=== PATIENT | male | born 1995 | race Caucasian/White ===

== ENCOUNTER 2016-08-30 06:58 | Emergency (ER) | payer BC ==
[2016-08-30 07:15] VITALS: TEMP 98.5
[2016-08-30] MEDS ORDERED: SODIUM CHLORIDE 0.9% 1000ML 1,000 ML IVS ONE (07:16)
[2016-08-30] MEDS ORDERED: PROMETHAZINE HCL INJ 25 MG in SODIUM CHLORIDE 0.9% 50ML 50 ML IVPB ONE (07:16)
[2016-08-30] MEDS ORDERED: SODIUM CHLORIDE 0.9% 50ML 50 ML ONE (07:28)
[2016-08-30] MEDS ORDERED: PROMETHAZINE HCL INJ 25 MG/ML VIAL ONE (07:28)
--- NOTE | 2016-08-30 08:36 | RAD ---
EXAM DESCRIPTION: XR ABDOMEN 2 VIEWS SUPINE ERECT CLINICAL HISTORY: n/v COMPARISON: None available FINDINGS: The cardiomediastinal silhouette is unremarkable. There is no airspace consolidation or pleural effusion. A right-sided DROP HAMMER SET UP OPERATOR shunt catheter is present but only partially visualized on this exam. There is no free subdiaphragmatic gas or intra-abdominal air fluid level period there are few nondilated gas-filled small bowel loops in the left mid abdomen, nonspecific period there is no evidence of obstruction or other acute intra-abdominal abnormality period no suspicious intra-abdominal calcification or mass, and no acute bone lesion period IMPRESSION: Several nondilated gas-filled small bowel loops in the left mid abdomen suggest the possibility of enteritis. No obstruction, pneumoperitoneum or other acute intra-abdominal abnormality. Electronically signed by: Eyal Yost DO 08/30/2016 08:34
[2016-08-30] MEDS ORDERED: carBAMazepine 200 MG TAB PO ONE (08:58)
[2016-08-30] MEDS ORDERED: levETIRAcetam INJ 1,000 MG in SODIUM CHLORIDE 0.9% 100ML 100 ML IVPB ONE (08:58)
[2016-08-30] MEDS ORDERED: ALUMINUM & MAGNESIUM HYDROXIDE 30 ML UD PO ONE (08:58)
[2016-08-30] MEDS ORDERED: levETIRAcetam INJ 100 MG/ML VIAL IVPB ONE ×2 (09:34→09:38)
[2016-08-30] MEDS ORDERED: SODIUM CHLORIDE 0.9% 100ML 100 ML IVPB ONE ×2 (09:35→09:38)
--- NOTE | 2016-08-30 10:23 | ED.PDOC ---
History of Present Illness - General Chief Complaint: Abdominal Pain Stated Complaint: abdominal pain Time Seen by Provider: 08/30/16 07:16 Source: patient, family Exam Limitations: no limitations - History of Present Illness Initial Comments: the patient is a 21-year-old male presenting to the emergency room with his parents secondary to nausea and vomiting for the last 24 hours. He started having vomiting and abdominal cramping starting at approximately 1 PM yesterday. He arrived here approximately 7 AM this morning. He has thrown up better than 10 times. He does think that he kept down his epilepsy medications last night. he has not had a seizure. He is having abdominal cramping and some muscular cramping as well as a mild headache. He did have a BANANA CARRIER shunt placed with revisions in the past. No new focal neurological changes. He does feel dry. He does feel weak when he goes to stand up. No syncope or near- syncope. No definite fevers. No rash. No vision changes. No balance issues that are new. headache started this morning well after the start of the vomiting yesterday. Timing/Duration: 24 hours Severity: moderate Improving Factors: nothing Worsening Factors: nothing Associated Symptoms: loss of appetite, malaise, nausea/vomiting Allergies/Adverse Reactions: Allergies NO KNOWN ALLERGY Allergy (Verified 08/30/16 07:14) Home Medications: Ambulatory Orders Carbamazepine 400 mg PO BID 08/30/16 Guanfacine HCl (Adhd) [Guanfacine ER] 2 mg PO DAILY 08/30/16 Levetiracetam 2,000 mg PO BID 08/30/16 Ondansetron [Zofran Odt] 4 mg PO Q4H PRN #10 tab 08/30/16 Promethazine HCl 25 mg PO Q6H PRN #10 tab 08/30/16 Review of Systems - Review of Systems Constitutional: States: malaise, weakness EENTM: States: no symptoms reported Respiratory: States: no symptoms reported Cardiology: States: no symptoms reported Gastrointestinal/Abdominal: States: abdominal pain, nausea, vomiting Genitourinary: States: no symptoms reported Musculoskeletal: States: muscle stiffness Skin: States: no symptoms reported Neurological: States: headache - mild and circumferential Endocrine: States: no symptoms reported All other Systems: No Change from Baseline Past Medical History (General) - Patient Medical History Hx Seizures: Yes Surgical History: other - Vaccination History Hx Tetanus, Diphtheria Vaccination: No Hx Influenza Vaccination: Yes Hx Pneumococcal Vaccination: No - Social History Hx Tobacco Use: No Hx Alcohol Use: No Hx Substance Use: No Hx Substance Use Treatment: No Hx Depression: No - Activities of Daily Living Hospice Agency (if applicable):: None - Female History Patient is a Female of Child Bearing Age (10 -59 yrs old): No Patient : No Family Medical History - Family History Mother Family History: Unknown Physical Exam - Physical Exam General Appearance: Alert, No apparent distress Eye Exam: bilateral normal Ears, Nose, Throat: hearing grossly normal, normal ENT inspection Neck: non-tender, full range of motion, supple - no nuchal rigidity or meningeal signs. Respiratory: chest non-tender, lungs clear, normal breath sounds, no respiratory distress, no accessory muscle use Cardiovascular/Chest: normal peripheral pulses, regular rate, rhythm, no edema Peripheral Pulses: radial,right: 2+, radial,left: 2+, dorsalis pedis,right: 2+, dorsalis pedis,left: 2+ Gastrointestinal/Abdominal: other - the patient has mild diffuse discomfort palpation. No rebound or peritoneal signs. Most of the discomfort is periumbilical. No right lower quadrant more significant right upper quadrant pain. Rectal Exam: deferred Back Exam: normal inspection, no CVA tenderness Extremity: normal range of motion, non-tender, normal inspection, no pedal edema Neurologic: alert, normal mood/affect, oriented x 3 Skin Exam: normal color Comments: Vital Signs - 24 hr 08/30/16 08/30/16 07:02 07:59 Temperature 98.5 F Pulse Rate [ 69 56 L pulse ox] Respiratory 20 20 Rate Blood Pressure 127/73 101/61 [Left Arm] O2 Sat by Pulse 99 97 Oximetry Progress - Progress Progress: 08/30/16 10:27 08/30/16 10:28 the patient is a 21-year-old male presenting with what appears to be gastroenteritis most likely of viral origin. He'll be written for Zofran and Phenergan for when necessary use. I prefer that he use the Phenergan first to control the vomiting and if that fails then add on Zofran. he needs to keep well-hydrated. He did have mild to moderate dehydration here today. Lab work does look reassuring. Abdominal series x-rays look reassuring as well. Vital signs are reassuring. He needs to follow-up with his primary care doctor before the weekend. ER warnings were given for any worsening. I also recommend that he take Pepcid once daily preferably in the middle of the day for the next week to help reduce stomach irritation. He can additionally take Maalox or Tums as needed for the next week to help reduce gastritis symptoms. - Results/Orders Results/Orders: Laboratory Last Values WBC 4.2 K/mm3 (4.8-10.8) L 08/30/16 07:25 RBC 4.79 M/mm3 (4.70-6.10) 08/30/16 07:25 Hgb 14.8 gm/dL (14.0-18.0) 08/30/16 07:25 Hct 43.5 % (42.0-52.0) 08/30/16 07:25 MCV 90.8 fl (80.0-94.0) 08/30/16 07:25 MCH 31.0 pg (27.0-31.0) 08/30/16 07:25 MCHC 34.1 g/dL (33.0-37.0) 08/30/16 07:25 RDW 12.6 % (11.5-14.5) 08/30/16 07:25 Plt Count 203 K/mm3 (130-400) 08/30/16 07:25 MPV 6.1 fl (7.40-10.4) L 08/30/16 07:25 Absolute Neuts (auto) 2.90 K/uL (1.8-6.8) 08/30/16 07:25 Absolute Lymphs (auto) 0.80 K/uL (1.0-3.4) L 08/30/16 07:25 Absolute Monos (auto) 0.50 K/uL (0.2-0.8) 08/30/16 07:25 Absolute Eos (auto) 0.00 K/uL (0.0-0.4) 08/30/16 07:25 Absolute Basos (auto) 0.00 K/uL (0.0-0.1) 08/30/16 07:25 Neutrophils % 68.2 % (42.0-78.0) 08/30/16 07:25 Lymphocytes % 19.0 % (20.0-50.0) L 08/30/16 07:25 Monocytes % 12.4 % (2.0-9.0) H 08/30/16 07:25 Eosinophils % 0.1 % (1.0-5.0) L 08/30/16 07:25 Basophils % 0.3 % (0.0-2.0) 08/30/16 07:25 PT 11.9 SECONDS (9.4-12.5) 08/30/16 07:25 INR 1.060 08/30/16 07:25 PTT (SP) 33.2 SECONDS (25.1-36.5) 08/30/16 07:25 Sodium 136 mmol/L (135-145) 08/30/16 07:25 Potassium 3.8 mmol/L (3.6-5.0) 08/30/16 07:25 Chloride 102 mmol/L (101-111) 08/30/16 07:25 Carbon Dioxide 28 mmol/L (21-31) 08/30/16 07:25 Anion Gap 9.8 (12-18) L 08/30/16 07:25 BUN 11 mg/dL (7-18) 08/30/16 07:25 Creatinine 0.75 mg/dL (0.6-1.3) 08/30/16 07:25 BUN/Creatinine Ratio 14.7 (10-20) 08/30/16 07:25 Random Glucose 109 mg/dL (70-105) H 08/30/16 07:25 Serum Osmolality 271.9 mOsm/L (275-295) L 08/30/16 07:25 Calcium 8.7 mg/dL (8.4-10.2) 08/30/16 07:25 Magnesium 1.9 mg/dL (1.8-2.5) 08/30/16 07:25 Total Bilirubin 0.6 mg/dL (0.2-1.0) 08/30/16 07:25 AST 24 IU/L (10-42) 08/30/16 07:25 ALT 51 IU/L (10-60) 08/30/16 07:25 Alkaline Phosphatase 55 IU/L (42-121) 08/30/16 07:25 Serum Total Protein 7.0 gm/dL (6.4-8.2) 08/30/16 07:25 Albumin 4.0 g/dl (3.2-5.5) 08/30/16 07:25 Globulin 3.0 gm/dL (2.3-3.5) 08/30/16 07:25 Albumin/Globulin Ratio 1.3 (1.1-1.9) 08/30/16 07:25 Amylase 43 U/L (28-100) 08/30/16 07:25 Lipase 20 U/L (22-51) L 08/30/16 07:25 TSH 0.69 uIU/mL (0.34-5.60) 08/30/16 07:25 Urine Color Yellow (Yellow) 08/30/16 08:18 Urine Appearance Clear (Clear) 08/30/16 08:18 Urine pH 7.0 (4.5-7.8) 08/30/16 08:18 Ur Specific [place] 1.020 (1.005-1.030) 08/30/16 08:18 Urine Protein 30 mg/dL 08/30/16 08:18 Urine Glucose (UA) 100 mg/dL (Negative) H 08/30/16 08:18 Urine Ketones Trace mg/dL (NEGATIVE) 08/30/16 08:18 Urine Blood Negative (Negative) 08/30/16 08:18 Urine Nitrite Negative 08/30/16 08:18 Urine Bilirubin Small (NEGATIVE) H 08/30/16 08:18 Urine Urobilinogen 1.0 mg/dL (0.2-1.0) 08/30/16 08:18 Ur Leukocyte Esterase Negative (Negative) 08/30/16 08:18 Urine RBC 0 /hpf 08/30/16 08:18 Urine WBC 0 /hpf 08/30/16 08:18 Ur Epithelial Cells 1-3 /hpf 08/30/16 08:18 Urine Bacteria 0 08/30/16 08:18 Urine Mucus Trace 08/30/16 08:18 abdominal series shows no acute definitive pathology. Departure - Departure Clinical Impression: Gastroenteritis, Dehydration, mild Disposition: Discharge to Home or Self Care Condition: Fair Departure Forms: ED Discharge - Pt. Copy, Patient Portal Self Enrollment Instructions: DI for Viral Gastroenteritis -- Adult, DI for Dehydration -- Adult Diet: bland diet Activity: increase activity as tolerated Referrals: Pawan James MD [Primary Care Provider] - 1-2 Days Prescriptions: Promethazine HCl 25 mg PO Q6H PRN #10 tab PRN Reason: Vomiting Ondansetron [Zofran Odt] 4 mg PO Q4H PRN #10 tab PRN Reason: Vomiting Home Medications: Ambulatory Orders Carbamazepine 400 mg PO BID 08/30/16 Guanfacine HCl (Adhd) [Guanfacine ER] 2 mg PO DAILY 08/30/16 Levetiracetam 2,000 mg PO BID 08/30/16 Ondansetron [Zofran Odt] 4 mg PO Q4H PRN #10 tab 08/30/16 Promethazine HCl 25 mg PO Q6H PRN #10 tab 08/30/16 Additional Instructions: the patient is a 21-year-old male presenting with what appears to be gastroenteritis most likely of viral origin. He'll be written for Zofran and Phenergan for when necessary use. I prefer that he use the Phenergan first to control the vomiting and if that fails then add on Zofran. he needs to keep well-hydrated. He did have mild to moderate dehydration here today. Lab work does look reassuring. Abdominal series x-rays look reassuring as well. Vital signs are reassuring. He needs to follow-up with his primary care doctor before the weekend. ER warnings were given for any worsening. I also recommend that he take Pepcid once daily preferably in the middle of the day for the next week to help reduce stomach irritation. He can additionally take Maalox or Tums as needed for the next week to help reduce gastritis symptoms. He was given his morning doses of his medications for treatment of his epilepsy here in the emergency room. His home medications can be resumed this evening.
[2016-08-30 11:19] VITALS: BP 106/60; O2SAT 99
== END 2016-08-30 11:15 | disposition home or self-care (01) ==
LOC: ER 06:58
DX: K52.9 Noninfective gastroenteritis and colitis, unspecified (principal); E86.0 Dehydration; G40.909 Epilepsy, unspecified, not intractable, without status epilepticus; Z79.899 Other long term (current) drug therapy
CPT/HCPCS: 36415; 74020; 80053; 81001; 82150; 83690; 83735; 84443; 85025; 85610; 85730; A4216; J2060; J2550; J7030

== ENCOUNTER → 2016-09-01 | Outpatient (CLI) | payer BC | LOC: GMAB 14:15 | PROVIDERS: ATTEND Family Medicine | DX: A08.4 Viral intestinal infection, unspecified (principal); R11.2 Nausea with vomiting, unspecified ==

== ENCOUNTER → 2016-09-01 | Outpatient (CLI) | payer BC ==
--- NOTE | 2016-09-01 12:23 | CT ---
EXAM DESCRIPTION: CT ABDOMEN PELVIS WITHOUT THEN WITH IV CONTRAST CLINICAL HISTORY: RLQ PAIN COMPARISON: None Available TECHNIQUE: CT of the abdomen and Pelvis was performed with and without IV contrast. FINDINGS: The appendix is normal period there is no calcified gallstone or renal calculus period medical tubing in the anterior abdominal wall extending into the lower abdomen pelvis suggest a RESOURCE EFFICIENCY MANAGER shunt catheter period the lung bases are unremarkable period there is no pneumoperitoneum, ascites or adenopathy period no hiatal hernia period the liver, spleen, pancreas, adrenals and kidneys are unremarkable period there is no bladder wall thickening period no dilated small bowel loops period there is no colonic wall thickening or pericolonic inflammation period no inguinal hernia period no suspicious bone lesion period IMPRESSION: No evidence of appendicitis or other acute abnormality in the abdomen or pelvis to explain right lower quadrant pain.. Electronically signed by: Eyal Yost DO 09/01/2016 12:21
--- NOTE | 2016-09-01 13:54 | US ---
EXAM DESCRIPTION: Gallbladder ultrasound. CLINICAL HISTORY: Abdominal pain. COMPARISON: None. TECHNIQUE: Transabdominal sonography was performed by an veterinary surgery technologist. FINDINGS: Liver: Echogenicity is unremarkable.suggests fatty infiltration and/or chronic hepatocellular disease. No suspicious lesion or surface nodularity. Biliary: No gallstones, gallbladder wall thickening, or sonographic Cassidy's sign. There is no biliary duct dilation. Mid common bile duct measures 5 mm in diameter. Pancreas: No focal lesion. However, certain portions are obscured by overlying bowel gas and unable to be evaluated. IMPRESSION There is increased echogenicity to the liver compatible with fatty infiltration. The remaining study is unremarkable with no evidence of cholelithiasis or cholecystitis. Electronically signed by: Germán Jin MD 09/01/2016 13:52
== END ==
LOC: RAD 11:30
PROVIDERS: ATTEND Family Medicine
DX: R10.31 Right lower quadrant pain (principal)

== ENCOUNTER → 2016-09-04 | Outpatient (CLI) | payer BC | LOC: GMAB 14:17 | PROVIDERS: ATTEND Family Medicine | DX: R94.5 Abnormal results of liver function studies (principal) ==

== ENCOUNTER → 2016-09-07 | Outpatient (CLI) | payer BC ==
--- NOTE | 2016-09-07 13:39 | NM ---
EXAM DESCRIPTION: NM HEPATOBILIARY WITH PHARM CLINICAL HISTORY: 21 y/o M, ABDOMINAL PAIN COMPARISON: None. FINDINGS: Radiopharmaceutical: 7.0 mCi technetium 99 M IV; 1.7 mcg. CCK, slow IV push Distribution of the radiopharmaceutical is homogeneous. The gallbladder becomes apparent definitively by 11 min with small bowel activity noted by 20 min. Clearance of pharmaceutical is noted in the expected timeframe. Pharmacologic gallbladder stimulation was given. The following images document a normal ejection fraction of 54% without associated discomfort. The study however suggests bile salt reflux with activity in the left upper quadrant noted. IMPRESSION: 1. Normal HIDA scan. 2. Bile salt reflux. Electronically signed by: Mackenzie Cortez 09/07/2016 13:37
== END ==
LOC: NM 09:02
PROVIDERS: ATTEND Family Medicine
DX: R10.84 Generalized abdominal pain (principal)
CPT/HCPCS: 78227; A9537

== ENCOUNTER → 2016-09-11 | Outpatient (CLI) | payer BC ==
--- NOTE | 2016-09-11 10:18 | RAD ---
EXAM DESCRIPTION: Abdomen radiography. CLINICAL HISTORY: Abdominal pain. COMPARISON: August 30, 2016 TECHNIQUE: Two views. FINDINGS: Bowel gas pattern is non-obstructed. There is no obvious free intraperitoneal air. Visualized segments of the abdominal organs are unremarkable. No suspicious bone lesion or fracture is seen. IMPRESSION: No significant abnormality. Electronically signed by: Germán Jin MD 09/11/2016 10:17
== END ==
LOC: RAD 09:34
PROVIDERS: ATTEND Surgery
DX: R10.11 Right upper quadrant pain (principal)

== ENCOUNTER → 2017-03-12 | Outpatient (CLI) | payer BC ==
--- NOTE | 2017-03-13 10:00 | CT ---
EXAM DESCRIPTION: Abdomen/Pelvis w/Contrast CLINICAL HISTORY: 21 years Male, R10.11 COMPARISON: 01 September 2016 TECHNIQUE: Transaxial images were obtained without intravenous or oral contrast media. Sagittal and coronal reconstruction was performed.This exam was performed according to our departmental dose-optimization program, which includes automated exposure control, adjustment of the mA and/or kV according to patient size and/or use of iterative reconstruction technique. FINDINGS: The lung bases are clear. BINDER STRIPPER HAND shunt tubing is seen traversing the anterior chest and is coiled in the abdomen. The liver and spleen are unremarkable. No biliary ductal dilatation is observed. The gallbladder is normal in appearance. No adrenal masses are detected. The pancreas is normal. Imaging of the kidneys reveals no evidence of hydronephrosis mass cyst or calcification. The appendix is identified and is normal in appearance. Small amount of free fluid is observed in the pelvis. No inguinal region abnormality is seen. No bone abnormality is seen. IMPRESSION: 1. BINDER STRIPPER HAND shunt tubing is seen coiled in the abdomen. 2. A small amount of free fluid is observed in the pelvis. Electronically signed by: Krish Berumen MD 03/13/2017 9:59 AM CDT
== END ==
LOC: CT 09:47
PROVIDERS: ATTEND Internal Medicine Gastroenterology
DX: R10.11 Right upper quadrant pain (principal); R10.13 Epigastric pain

== ENCOUNTER 2017-08-18 15:51 | Emergency (ER) | payer BC ==
[2017-08-18 16:05] VITALS: TEMP 99
[2017-08-18] MEDS ORDERED: SODIUM CHLORIDE 0.9% 1000ML 1,000 ML IVS ONE (16:12)
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
[2017-08-18] MEDS ORDERED: KETOROLAC TROMETHAMINE INJ 30 MG/ML VIAL IV ONE (16:49)
[2017-08-18] MEDS: fentaNYL CITRATE INJ 50 MCG/ML AMP IV PRN ×2 (16:53→17:42)
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
[2017-08-18] MEDS ORDERED: ACETAMINOPHEN W/COD #3 TAB (ER Disp) PO PRN (18:47)
[2017-08-18 18:57] VITALS: BP 130/74; O2SAT 97
== END 2017-08-18 18:57 | disposition home or self-care (01) ==
LOC: ER 15:51
DX: M54.2 Cervicalgia (principal); R51 Headache; Z98.2 Presence of cerebrospinal fluid drainage device; V49.9XXA Car occupant (driver) (passenger) injured in unspecified traffic accident, initial encounter; Y92.410 Unspecified street and highway as the place of occurrence of the external cause
CPT/HCPCS: 36415; 70450; 71260; 72125; 80053; 80320; 85025; J1885; J3010; J7030

== ENCOUNTER 2017-08-21 16:45 | Emergency (ER) | payer BC ==
[2017-08-21 17:18] VITALS: TEMP 96.8
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
[2017-08-21] MEDS ORDERED: PROMETHAZINE HCL INJ 25 MG/ML VIAL IM ONE (20:14)
[2017-08-21] MEDS ORDERED: BUTORPHANOL TARTRATE 2 MG/ML VIAL IM ONE (20:14)
[2017-08-21 20:45] VITALS: BP 126/63; O2SAT 98
--- NOTE | 2017-08-21 20:59 | CT ---
PROCEDURE: Head HISTORY: headache/shunt NON CONTRAST Indication: Same as above Comparison: CT of the head done on 08/18/2017 Technique: CT of the head was done without intravenous contrast was done in the orthogonal planes. This exam was performed according to our departmental dose-optimization program, which includes automated exposure control, adjustment of the mA and/or KV according to the patient's size and/or use of iterative reconstruction technique. FINDINGS: There is no intracranial hemorrhage, midline shift mass effect or acute focal infarct. Note is again made of right-sided craniotomy defects and presence of a right-sided ENTRY REP shunt terminating in the medial right lateral ventricle. There is no hydrocephalus. Stable right frontal atrophy is noted If clinical concern exists regarding an acute ischemic/vascular pathology being responsible for patient's symptomatology, an MRI of the brain is more sensitive than the current study, in ruling out such a possibility. There is good velarde/white matter differentiation. The mastoid air cells are unremarkable . The paranasal sinuses show changes of mild chronic sinusitis . There is no visualization of acute fractures involving the calvarium or the skull base. IMPRESSION: There is no acute intracranial abnormality. Stable position of the right-sided ENTRY REP shunt. There is no hydrocephalus Electronically signed by: Jose Alberto Frank MD 08/21/2017 7:54 PM UPHOLSTERY SEWER Workstation: [id number]
== END 2017-08-21 20:44 | disposition home or self-care (01) ==
LOC: ER 16:45
DX: G44.309 Post-traumatic headache, unspecified, not intractable (principal); Z98.2 Presence of cerebrospinal fluid drainage device; Z86.61 Personal history of infections of the central nervous system
CPT/HCPCS: 70450; J0595; J2550

== ENCOUNTER → 2020-01-19 | Outpatient (CLI) | payer BC ==
--- NOTE | 2020-01-20 12:10 | US ---
EXAM DESCRIPTION: Soft Tissue,Abdomen: ULTRASOUND. CLINICAL HISTORY: LOC SWELLING, MASS AND LUMP, UNSP. Unspecified. Patient states he has felt this mass for 6 months. He "popped a pimple" in this region 6 months ago. COMPARISON: CT scan of chest and CT scan of cervical spine July 2017. CT scan of August 2017. TECHNIQUE: Transabdominal scanning: velarde-scale mode. Doppler mode. FINDINGS: Scanning of the left upper back and palpable region. This mass is in the subdermal and subcutaneous adipose tissue in the left upper back. Measurement approximately 1.8 x 1.7 x 1.5 cm. Heterogeneous with hypoechoic and hyperechoic elements. Vascular. Posterior margin is well-defined with posterior acoustic shadowing no fluid component. No surrounding fluid compartment, no large calcifications. IMPRESSION: Palpable lesion may represent residual scar tissue from prior pustule on the upper left back. If this lesion enlarges or becomes painful, consider ultrasound-guided percutaneous drainage/needle biopsy. Electronically signed by: Chase Thorne MD 01/20/2020 12:09 PM CDT
== END ==
LOC: US 16:23
PROVIDERS: ATTEND Family Medicine
DX: R22.2 Localized swelling, mass and lump, trunk (principal)